=== PATIENT | male | born 1940 | race Caucasian/White ===

== ENCOUNTER → 2018-11-29 | Outpatient (CLI) | payer OTHER ==
[~2018-11-29] MED LIST: REGADENOSON 0.4 MG/5 ML DISP.SYRIN. IV ONE
--- NOTE | 2018-11-29 11:29 | PCVCIMAG ---
APPROVED REPORT Study performed: 11/29/2018 08:32:30 EXAM: Comprehensive 2D, Doppler, and color-flow Echocardiogram Patient Location: Echo lab Room #: 2Status: routine BSA: 1.98 HR: 57 bpmBP: 148/76 mmHg Rhythm: NSR Other Information Study Quality: Adequate Risk Factors: Cardiac Risk Factors: HTN, Dyslipidemia Indications Syncope Hypertension/HDD 2D Dimensions IVSd: 11.99 (7-11mm)LVOT Diam: 21.72 (18-24mm) LVDd: 48.26 mm PWd: 7.16 (7-11mm)Ascending Ao: 39.46 (22-36mm) LVDs: 31.65 (25-40mm) Left Atrium: 31.78 (27-40mm) Aortic Root: 32.20 mm LV Single Plane 4CH: 54.37 % LV Single Plane 2CH: 56.45 % Biplane EF: 55.9 % Volumes Left Atrial Volume (Systole) Single Plane 4CH: 36.44 mLSingle Plane 2CH: 53.88 mL Biplane LA Volume: 46.00 mLLA ESV Index: 23.00 mL/m2 Aortic Valve AoV Peak Usman.: 1.44 m/s AO Peak Gr.: 8.29 mmHgLVOT Max P.15 mmHg LVOT Max V: 0.89 m/s KRISTAL Vmax: 2.28 cm2 AI Vmax: 3.99 m/s AI Briscoe: 1.91 m/s2 AI PHT: 613.10 ms Mitral Valve E/A Ratio: 0.8 MV Decel. Time: 290.77 ms MV E Max Usman.: 0.67 m/s MV A Usman.: 0.79 m/s IVRT: 96.89 ms TDI E/Lateral E': 13.40E/Medial E': 16.75 Medial E' Usman.: 0.04 m/s Lateral E' Usman.: 0.05 m/s Pulmonary Vein P Vein S: 0.58 m/sP Vein A: 0.29 m/s P Vein D: 0.37 m/sP Vein A Dur.: 107.3 msec P Vein S/D Ratio: 1.57 Tricuspid Valve TV Vmax: 0.50 m/s Left Ventricle The left ventricle is normal size. There is normal LV segmental wall motion. There is normal left ventricular wall thickness. Left ventricular systolic function is normal. The left ventricular ejection fraction is within the normal range. LVEF is 55-60%. Grade I - abnormal relaxation pattern. Findings suggest the left atrial pressure is elevated. Right Ventricle The right ventricle is normal size.The RV free wall is rhickened and echogenic. Possible small effeusion is seen The right ventricular systolic function is normal. Atria The left atrium size is normal. The right atrium size is normal. Aortic Valve Aortic valve is trileaflet. Mild aortic valve sclerosis. Moderate aortic regurgitation. There is no aortic valvular stenosis. Mitral Valve The mitral valve is normal in structure. Trace to mild mitral regurgitation. No evidence of mitral valve stenosis. Tricuspid Valve The tricuspid valve is normal in structure. No apparent pulmonary hypertension. Pulmonic Valve The pulmonary valve is normal in structure. There is no pulmonic valvular regurgitation. Great Vessels The aortic root is normal in size. The ascending aorta is mildly dilated. Aortic arch is normal in caliber. IVC is normal in size and collapses >50% with inspiration. Pericardium There is no pericardial effusion. There is no pleural effusion. <Conclusion> The left ventricle is normal size. LVEF is 55-60%. The right ventricle is normal size.The RV free wall is rhickened and echogenic. Possible small effeusion is seen Aortic valve is trileaflet. Mild aortic valve sclerosis. Moderate aortic regurgitation. The mitral valve is normal in structure. Trace to mild mitral regurgitation. The tricuspid valve is normal in structure. The pulmonary valve is normal in structure. The ascending aorta is mildly dilated. Aortic arch is normal in caliber. There is no pericardial effusion.
--- NOTE | 2018-12-04 10:02 | PCVCIMAG ---
APPROVED REPORT Imaging Protocol: Rest Tc-99m/Stress Tc-99m 1 day Study performed: 11/29/2018 09:57:06 Indication: Syncope Patient Location: Out-Patient Stress Nurse: Jocelin Valdes RN, Laura Moseley RN [place] Tech:Stacie Brower [facility] Ht: 5 ft 8 in Wt: 185 lbs BSA: 1.98 m2 BMI: 28.12 Rhythm: Sinus Rhythm, 1st degree AV block Medical History Medical History: Hyperlipidemia, HTN Medications: Atenolol, Allergies: No known drug allergies Cardiac Risk Factors: Age Pretest Chest Pain Characteristics: No chest pain Exercise History: Indeterminate Physical Disabilities: Knees, Back Meds Held (24 hrs): Atenolol Resting Data Rest SPECT myocardial perfusion imaging was performed in supine position 45 minutes following the intravenous injection of 10.5 mCi of Tc-99m Sestamibi. Time of rest injection: 0930 Date: 11/29/2018 Administration Route: IV Administration Site: Right Hand Pharmacologic Stress Pharmacologic stress test was performed by injecting Regadenoson 0.4 mg IV push over 10-15 seconds immediately followed by the intravenous injection of 34.4 mCi of Tc-99m Sestamibi. Time of stress injection: 1050 Date: 11/29/2018 Administration Route: IV Administration Site: Right Hand Gated Stress SPECT was performed 45 minutes after stress injection. The images were gated to evaluate regional wall motion and calculate left ventricular ejection fraction. Stress Test Details Stress Test: Pharmacologic stress was paired with low level exercise. Reason for pharmacologic stress test: physical limitation, knee issues and back pain. HRMax Heart Rate (APMHR): 143 bpm Resting HR: 64 bpmTarget HR (85% APMHR): 121 bpm Max HR Achieved: 96 bpm % of APMHR: 67 Recovery HR: 71 bpm BP Resting BP: 184/90 mmHg Max BP: 168/78 mmHg Recovery BP: 171/79 mmHg ECG Resting ECG: Sinus Rhythm, 1st degree AV block Stress ECG: Sinus Rhythm, 1st degree AV block Arrhythmia: None Recovery ECG: Sinus Rhythm, 1st degree AV block Clinical Reason for Termination: Completed protocol Stress Symptoms: Dyspnea, Leg Fatigue Exercise duration: 4 min 00 sec Exercise capacity: 1.6 METs Symptoms resolved with caffeine. Stress ECG Conclusion 1. Adequate response intravenous Lexiscan 2. Inadequate heart rate for ECG diagnosis Study Data Post stress, the left ventricular ejection was 70%.. SSS: 4 SRS: 0 SDS: 4 TID = 0.86. Perfusion There is a small area of mildly reduced uptake in the apical segment of the anterior wall which is seen on the stress images as well as the resting images. This area thickens and moves normally and is most consistent with attenuation artifact. Nuclear Conclusion ECG Findings: non-diagnostic Clinical Findings: negative for ischemia Nuclear Findings: negative for ischemia Exercise Capacity: not assessed 1. Low risk study based on the absence of statistically significant inducible ischemia 2. Post exercise left ventricular ejection fraction of 70% with normal contractility <Conclusion> 1. Adequate response intravenous Lexiscan 2. Inadequate heart rate for ECG diagnosis
== END | disposition home or self-care (01) ==
LOC: PCVCIMAG 08:08
PROVIDERS: ATTEND Internal Medicine
DX: I08.0 Rheumatic disorders of both mitral and aortic valves (principal); R55 Syncope and collapse; I10 Essential (primary) hypertension; E78.2 Mixed hyperlipidemia
CPT/HCPCS: 78452; 93017; 93306; A9500; J2785

== ENCOUNTER → 2019-01-29 | Outpatient (CLI) | payer OTHER | END | disposition home or self-care (01) | LOC: PCVCCLINIC 10:00 | PROVIDERS: ATTEND Internal Medicine | DX: R55 Syncope and collapse (principal); I10 Essential (primary) hypertension; E78.5 Hyperlipidemia, unspecified; R94.31 Abnormal electrocardiogram [ECG] [EKG]; E03.9 Hypothyroidism, unspecified; M19.90 Unspecified osteoarthritis, unspecified site; Z82.49 Family history of ischemic heart disease and other diseases of the circulatory system; Z79.899 Other long term (current) drug therapy | CPT/HCPCS: 36415; 80061; 93005; G0463 ==